=== PATIENT | male | born 1965 | race Caucasian/White ===

== ENCOUNTER 2020-05-09 22:49 | Emergency (ER) | payer BC, SELFPAY ==
[2020-05-09 22:51] VITALS: BP 145/99; PULSE 69; RESP 17; TEMP 36.7; O2SAT 98; BMI 22.9
[2020-05-09 22:55] VITALS: BMI 22.9
--- NOTE | 2020-05-09 23:01 | CT_ITS ---
PROCEDURE: CT HEAD/BRAIN WO CON CLINICAL INDICATION: bilat facial/hands/feet tingling during altercatio Facial numbness COMPARISON: No exams were available for comparison TECHNIQUE: Axial images obtained. All CT scans at the facility use one or more dose reduction, viz: automated exposure control, ma/kV adjustment per patient size (including targeted exams where dose is matched to indication, i.e. head), or iterative reconstruction technique. FINDINGS: No midline shift, mass effect, intracranial hemorrhage, hydrocephalus, or extra-axial fluid collection is evident. The calvarium has an unremarkable appearance. No mastoid effusion. No sinus air-fluid level. IMPRESSION: No acute intracranial finding Dictated by: Juan Aden MD 05/10/2020 06:37 Juan Aden MD in [place] 05/10/2020 06:37
--- NOTE | 2020-05-09 23:04 | XR_ITS ---
PROCEDURE: XR CHEST 2V CLINICAL HISTORY: anxiety issues Left sided chest COMPARISON: CR CXR CHEST(2 VIEWS-NOT PORTABLE) from 11/24/2013 FINDINGS: The cardiomediastinal silhouette and pulmonary vascularity are within normal limits. The lungs are clear without infiltrates, suspicious nodules, or pleural effusions. No acute bony abnormalities. IMPRESSION: No acute findings. Dictated by: Juan Aden MD 05/10/2020 05:41 Juan Aden MD in [facility] 05/10/2020 05:41
[2020-05-09 23:29] LABS: Basophils # 0.1 K/mm3 (0-0.2); Basophils % 0.9 % (0.1-2.0); Eosinophils # 0.9 K/mm3 (0.0-0.4); Eosinophils % 9.2 % (0.1-12.0); Hematocrit 44.8 % (42.0-52.0); Hemoglobin 15.1 g/dL (14.1-18.0); Lymphocytes # 2.2 K/mm3 (0.7-4.5); Mean Corpuscular HGB Conc 33.7 g/dL (31.8-35.4); Mean Corpuscular Hemoglobin 31.3 pg (27.0-31.2); Mean Corpuscular Volume 92.9 fl (80-94); Mean Platelet Volume 6.8 fl (7.4-10.4); Monocytes # 0.6 K/mm3 (0.1-1.0); Monocytes % 6.2 % (1.7-9.3); Neutrophils # 6.1 K/mm3 (1.8-7.8); Neutrophils % 61.7 % (37.0-80.0); Platelet Count 366 K/mm3 (142-424); Red Blood Count 4.82 M/mm3 (4.60-6.20); White Blood Count 9.9 K/mm3 (4.8-10.8)
[2020-05-09 23:36] LABS: Chloride 105 mmol/L (98-107); Potassium 3.6 mmoL/L (3.5-5.1); Sodium 139 mmol/L (136-145)
[2020-05-09 23:39] LABS: Alanine Aminotransferase 19 U/L (12-78); Albumin Level 3.9 g/dl (3.5-5.0); Albumin/Globulin Ratio 1.5 (1.1-1.8); Alkaline Phosphatase 69 U/L (38-126); Anion Gap 12.6 mEq/L (5-15); Aspartate Amino Transferase 28 U/L (17-59); Bilirubin,Total 0.6 mg/dl (0.2-1.3); Blood Urea Nitrogen 16 mg/dl (9-20); Carbon Dioxide 25 mmol/L (22.0-30.0); Creatinine Clearance Estimated 101 mL/min (50-200); Estimated Glomerular Filt Rate 100 ml/min (>60); GFR (African American) 121 ML/MIN (>60); Globulin 2.6 g/dL (1.3-3.2); Total Protein,Serum 6.5 g/dl (6.3-8.2)
[2020-05-09 23:40] LABS: Calcium 8.7 mg/dl (8.4-10.2); Glucose 111 mg/dl (74-100)
[2020-05-09 23:57] LABS: Troponin I < 0.01 ng/ml (0.00-0.034)
--- NOTE | 2020-05-10 00:19 | HMH.EDANX ---
ED Disposition Clinical Impression: Acute anxiety Disposition: Home, Self-Care Condition on Discharge: Good Instructions: Anxiety and Panic Attacks (Alternative Therapy) Additional Instructions: call in am Referrals: Rubin Brizuela MD [Primary Care Provider] - - Critical Care Critical Care Time: No Attestation: On 05/09/20, the high probability of a clinically significant, sudden or life threatening deterioration of the following system(s) required my full and direct attention, intervention and personal management. The time I documented below is in addition to time spent performing reported procedures but includes the following listed in this critical care notation. Medical Decision Making - Medical Records Medical records reviewed: Yes: I reviewed the patient's medical records. - Wan Inquiry Pt receiving controlled substance: No Vital Signs: 05/09/20 22:51 Temperature 98.0 F Temperature Source Oral Pulse Rate [Right Brachial] 69 Respiratory Rate 17 Blood Pressure [Right Arm] 145/99 H Blood Pressure Mean [Right Arm] 114 Blood Pressure Source [Right Arm] Automatic Cuff Blood Pressure Position [Right Arm] Sitting 02 Sat by Pulse Oximetry 98 Oxygen Delivery Method Room Air - Lab Data Lab results reviewed: Yes: I reviewed the patient's lab results. Lab Results 05/09/20 23:10: WBC 9.9, RBC 4.82, Hgb 15.1, Hct 44.8, MCV 92.9, MCH 31.3 H, MCHC 33.7, RDW 13.0, Plt Count 366, MPV 6.8 L, Neut % (Auto) 61.7, Lymph % (Auto) 22.0, [place] % (Auto) 6.2, Eos % (Auto) 9.2, Baso % (Auto) 0.9, Neut # (Auto) 6.1, Lymph # (Auto) 2.2, [place] # (Auto) 0.6, Eos # (Auto) 0.9 H, Baso # (Auto) 0.1 05/09/20 23:10: Sodium 139, Potassium 3.6, Chloride 105, Carbon Dioxide 25, Anion Gap 12.6, BUN 16, Creatinine 0.80, Estimated Creat Clear 101, Estimated GFR 100, Est GFR ( Amer) 121, Glucose 111 H, Calcium 8.7, Total Bilirubin 0.6, AST 28, ALT 19, Alkaline Phosphatase 69, Troponin I < 0.01, Total Protein 6.5, Albumin 3.9, Globulin 2.6, Albumin/Globulin Ratio 1.5 Result diagrams: 05/09/20 23:10 05/09/20 23:10 Orders (Tests/Meds): ED MEDICATIONS Discontinued Medications Generic Name Dose Route Start Last Admin Trade Name Bessie PRN Reason Stop Dose Admin Lorazepam 0.5 mg 05/09/20 22:56 05/09/20 22:57 Ativan 0.5mg Tablet PO 05/09/20 22:57 0.5 mg ONCE ONE Administration ORDERS Category Date Time Status CT head/brain wo con Stat Cat Scan 05/09/20 23:01 Taken Chest XR 2 view (NOT portable) [XR chest 2V] Stat Exams 05/09/20 23:04 Taken Troponin I Q3H Lab 05/10/20 02:15 Ordered Troponin I Q3H Lab 05/10/20 05:15 Ordered - CT Data CT Scan: Head Time Received: 00:[address] Reviewed: Yes: I have viewed the radiologist's interpretation Preliminary Findings: Normal/NAD Anxiety HPI - General Chief Complaint: Anxiety Stated Complaint: anxiety attack Time Seen by Provider: 05/09/20 23:00 Mode of Arrival: EMS Source of Information: Patient, Spouse, EMS, Medical Record Limitations: No Limitations Description of Symptoms (Recalled from ER Triage Doc. by RN): bilat hands feet and facial numbness presentation; history of anxiety; pt states his turned 44 last week and since then they have been having marital discord. further states he is not a patient man and has some anger issues, and when she told him she wanted some space he lost it . He is upset because she has been staying with a friend, as well and not home with him. tonight she came to get some clothes and they talked for a few hours and he got upset and started feeling funny as not4ed before. called ems for response - History of Present Illness HPI narrative: pt with parasthesia as he was upset about marital issues - no focal changes MD complaint: anxiety Onset (ago): hour(s) Symptoms: extremity numbness/tingling, perioral numbness/tingling Severity: moderate Place: home History of similar episodes: No Provoking
[2020-05-10 00:42] VITALS: BP 112/55; PULSE 70; RESP 17; TEMP 36.7; O2SAT 98
== END 2020-05-10 00:45 | disposition home or self-care (01) ==
PROVIDERS: Emergency Provider Emergency Medicine; PCP Family Medicine
DX: F41.0 Panic disorder [episodic paroxysmal anxiety] (principal)
CPT/HCPCS: 70450; 71046; 80053; 84484; 85025; 93005; 96374; 99282

== ENCOUNTER 2022-07-31 15:02 | Emergency (ER) | payer SELFPAY ==
[2022-07-31 17:03] VITALS: BP 141/91; PULSE 80; RESP 19; TEMP 36.7; O2SAT 98; BMI 23.3
--- NOTE | 2022-07-31 17:13 | EXP.UTC ---
Discharge Plan Disposition Patient Disposition: Home, Self-Care Condition: Good Prescriptions Prescriptions: New azithromycin [Zithromax Z-Smith] 250 mg tablet See Rx Instructions .ROUTE .COMPLEX 5 Days Qty: 6 0RF Rx Instructions: For 250 mg dose pack: take 500 mg today (day 1), then 250 mg for 4 days (days 2-5) methylprednisolone [Medrol (Smith)] 4 mg tablets,dose pack See Rx Instructions .Route .COMPLEX 6 Days Qty: 21 0RF Rx Instructions: taper pack; No Action omeprazole 10 mg capsule,delayed release(DR/EC) 10 mg PO DAILY Referrals Follow up/Referrals: Rubin Brizuela MD [Primary Care Provider] - See instructions Clinical Impressions Clinical Impression: Sinusitis Qualifiers: Sinusitis location: unspecified location Chronicity: unspecified Qualified Code(s): J32.9 - Chronic sinusitis, unspecified Instructions Patient Instructions: Sinusitis, DI for Sinusitis Discharge ED Provider: Xena Cee [facility] [place] Stated complaint: Trouble hearing, drainage, cough, diarrhea Time Seen by Provider: 07/31/22 17:13 History of Present Illness Provider Complaint: Patient states that he has been having sinus pain and pressure, feeling like his ears all stopped up and full of fluid, had diarrhea yesterday but not today and at times he is coughing up mucous that is draining in his throat States today his head feels like a balloon Related Data Home Medications Medication Instructions Recorded Confirmed omeprazole 10 mg capsule,delayed 10 mg PO DAILY 07/16/18 07/16/18 release Previous Rx's Medication Instructions Recorded azithromycin 250 mg tablet See Rx Instructions PO .COMPLEX 5 07/31/22 (Zithromax Z-Smith) days #6 tabs methylprednisolone 4 mg tablets in See Rx Instructions .Route 07/31/22 a dose pack (Medrol (Smith)) .COMPLEX 6 days #21 tabs Allergies Allergy/AdvReac Type Severity Reaction Status Date / Time No Known Allergies Allergy Unverified 07/16/18 10:42 [facility] Social History Smoking Status: Never smoker alcohol intake: never current occupational status: employed Travel in the last 8 weeks: None ROS Obtained: Yes All systems reviewed & no additional complaints except as documented and Yes Systems reviewed as appropriate & no additional complaints except as documented Constitutional Constitutional: Reports system reviewed and no additional complaints, except as documented, Reports as per HPI, Denies fever(s) and Reports headache(s) ENT Ears, Nose, Mouth, and Throat: Reports system reviewed and no additional complaints, except as documented, Reports as per HPI, Reports otalgia, Reports headache(s), Reports sinus pain, Reports sinus pressure and Reports sore throat Respiratory Respiratory: Reports system reviewed and no additional complaints, except as documented, Reports as per HPI, Reports chest congestion and Reports cough Gastrointestinal Gastrointestingal: Reports system reviewed and no additional complaints, except as documented, as per HPI and diarrhea; Denies abdominal pain, cramping, nausea or vomiting Neurologic Neurologic: Reports headache(s) Physical Exam General General appearance: alert and in no apparent distress Expanded ENT Exam TM/Canal exam: Bilateral TM: bulging Nose exam: Present sinus tenderness Throat exam: Present other (pharyngeal erythema noted with PND) Respiratory Respiratory exam: Present normal lung sounds bilaterally; Absent respiratory distress or wheezes Cardiovascular Cardiovascular exam: Present regular rate, normal rhythm and normal heart sounds Neurological Exam Neurological exam: Present alert, oriented X3 and normal gait Medical Decision Making Wan Inquiry Pt receiving controlled substance: No Wan was queried for this patient: No Medical Decision Narrative: Patient state that he has take zpack and medrol pack in the past without complications or reactions
[2022-07-31 17:37] VITALS: BP 146/87; PULSE 83; RESP 17; TEMP 36.7; O2SAT 98
== END 2022-07-31 17:40 | disposition home or self-care (01) ==
PROVIDERS: Emergency Provider Nurse Practitioner; PCP Family Medicine
DX: J32.9 Chronic sinusitis, unspecified (principal)
CPT/HCPCS: 99212; G0463

== ENCOUNTER 2023-01-15 20:58 | Observation (INO) | payer BC, SELFPAY ==
[2023-01-15 20:59] VITALS: BP 136/96; PULSE 81; RESP 16; TEMP 36.6; O2SAT 97; BMI 25.2
--- NOTE | 2023-01-15 21:00 | ECG_ITS ---
APPROVED REPORT Exam: Resting ECG HR:59 bpm ECG Measurements Heart Rate 59 AXES MA 135 P 64 QRSd 108 QRS -20 QT 403 T 43 QTc 402 Conclusion SINUS BRADYCARDIA INCOMPLETE RIGHT BUNDLE BRANCH BLOCK [90+ ms QRS DURATION, TERMINAL R IN V1/V2, 40+ ms S IN I/aVL/V4/V5/V6] MINIMAL VOLTAGE CRITERIA FOR LVH, CONSIDER NORMAL VARIANT [MEETS CRITERIA IN ONE OF: R(aVL), S(V1), R(V5), R(V5/V6)+S(V1)] BORDERLINE ECG UNCONFIRMED REPORT Electronically signed by : Rubin Pearson MD 01/16/2023 19:37:28
--- NOTE | 2023-01-15 21:02 | XR_ITS ---
PROCEDURE INFORMATION: Exam: XR Chest Exam date and time: 01/15/2023 9:05 PM Age: 57 years old Clinical indication: Radiating; Patient HX: C/O chest pain that goes down left arm. Started a couple days ago, went away and now is back; Additional info: Cp TECHNIQUE: Imaging protocol: Radiologic exam of the chest. Views: 2 views. COMPARISON: CR XR CHEST 2V 05/09/2020 11:26 PM FINDINGS: Lungs: Unremarkable. No consolidation. Pleural spaces: Unremarkable. No pleural effusion. No pneumothorax. Heart/Mediastinum: Unremarkable. No cardiomegaly. Bones/joints: Unremarkable. IMPRESSION: No acute findings.
[2023-01-15 21:26] LABS: Basophils # 0.1 K/mm3 (0-0.2); Basophils % 0.7 % (0.1-2.0); Eosinophils # 0.3 K/mm3 (0.0-0.4); Eosinophils % 3.2 % (0.1-12.0); Hematocrit 44.4 % (42.0-52.0); Hemoglobin 14.6 g/dL (14.1-18.0); Lymphocytes # 2.6 K/mm3 (0.7-4.5); Lymphocytes % 25.5 % (10-50); Mean Corpuscular Hemoglobin 30.4 pg (27.0-31.2); Mean Corpuscular Volume 92.1 fl (80-94); Mean Platelet Volume 7.5 fl (7.4-10.4); Monocytes # 0.8 K/mm3 (0.1-1.0); Monocytes % 7.8 % (1.7-9.3); Neutrophils # 6.4 K/mm3 (1.8-7.8); Neutrophils % 62.7 % (37.0-80.0); Platelet Count 408 K/mm3 (142-424); Red Blood Count 4.82 M/mm3 (4.60-6.20); White Blood Count 10.2 K/mm3 (4.8-10.8)
[2023-01-15 21:31] VITALS: BP 113/76; RESP 20
[2023-01-15 21:38] LABS: Alanine Aminotransferase 25 U/L (12-78); Albumin Level 4.5 g/dl (3.5-5.0); Albumin/Globulin Ratio 1.7 (1.1-1.8); Alkaline Phosphatase 72 U/L (38-126); Anion Gap 10.5 mEq/L (5-15); Aspartate Amino Transferase 35 U/L (17-59); Bilirubin,Total 0.8 mg/dl (0.2-1.3); Blood Urea Nitrogen 18 mg/dl (9-20); Calcium 8.5 mg/dl (8.4-10.2); Carbon Dioxide 28 mmol/L (22.0-30.0); Chloride 104 mmol/L (98-107); Creatinine Clearance Estimated 86 mL/min (50-200); Estimated Glomerular Filt Rate 77 ml/min (>60); GFR (African American) 93 ML/MIN (>60); Globulin 2.6 g/dL (1.3-3.2); Glucose 107 mg/dl (74-100); Potassium 3.5 mmoL/L (3.5-5.1); Sodium 139 mmol/L (136-145); Total Protein,Serum 7.1 g/dl (6.3-8.2)
[2023-01-15 21:43] LABS: C-Reactive Protein 2.3 mg/L (0-4)
[2023-01-15 21:57] LABS: Procalcitonin 0.037 ng/mL (0.0-2.0)
[2023-01-15 21:58] LABS: Troponin I < 0.01 ng/ml (0.00-0.034)
[2023-01-15 22:00] VITALS: BP 107/73; PULSE 69; RESP 21; O2SAT 97
[2023-01-15 22:08] LABS: Erythrocyte Sedimentation Rate 5 mm/hr (0-20)
[2023-01-15 22:30] VITALS: BP 105/70; PULSE 60; RESP 16; O2SAT 98
[2023-01-15 23:00] VITALS: BP 107/73; PULSE 80; RESP 15; O2SAT 98
--- NOTE | 2023-01-15 23:08 | HMH.EDCP ---
Discharge Plan Disposition Patient Disposition: Admitted as Observation Chief Complaint: Chest Pain Prescriptions Prescriptions: No Action omeprazole 10 mg capsule,delayed release(DR/EC) 10 mg PO DAILY Referrals Follow up/Referrals: Rubin Brizuela MD [Primary Care Provider] - See instructions Discharge ED Provider: Jaret (ED),Devin Chakraborty Chest Pain HPI General Chief Complaint: Chest Pain Stated Complaint: cp Time Seen by Provider: 01/15/23 23:08 Mode of Arrival: Ambulatory Source of Information: Patient, Relative and Medical Record Limitations: No Limitations Description of Symptoms (Recalled from ER Triage Doc. by RN): pt c/o lt side chest tightness radiating up neck and down lt arm that started about 4pm this afternoon. pt states had an episode a couple days ago but todays is worse History of Present Illness HPI narrative: episodes of chest pain with rad to lt upper ext and neck over the last few days - did get relief with ntg complaint: chest pain indicative of cardiac Onset (ago): hour(s) Duration: intermittent Activity at onset: during rest Pain location: left chest Severity: moderate Quality: tightness Pain radiation: LUE and neck Relieving factors: nitroglycerin Risk Factors for CAD: Hypertension and Family Hx of CAD Treatments prior to or on arrival for Cardiac Chest Pain: none BOLIVAR Score for Non-Stemi Age of Patient: 50-59 years old Heart Rate: 50-69 bpm Systolic Blood Pressure: 120-139 mmhg Serum Creatinine: 0.80-1.19 mg/dl CHF [place] Class: I-No CHF Other Risk Factors: None Non-Stemi Risk Score: 85 Risk Stratification: 1-108 = Low Risk Related Data Home Medications Medication Instructions Recorded Confirmed omeprazole 10 mg capsule,delayed 10 mg PO DAILY gerd 07/16/18 01/15/23 release Allergies Allergy/AdvReac Type Severity Reaction Status Date / Time No Known Allergies Allergy Unverified 07/16/18 10:42 [facility] Disclaimer: The information contained in this section may have been updated after the patient was seen, as this information can be updated by other users. Social History (Updated 07/31/22 @ 17:21 by Xena Cee APRN) Smoking Status: Never smoker alcohol intake: never current occupational status: employed Travel in the last 8 weeks: None ROS Obtained: Yes All systems reviewed & no additional complaints except as documented Physical Exam General General appearance: alert Head Head exam: normocephalic Eye Eye exam: Present PERRL and EOMI ENT ENT exam: Present mucous membranes moist Neck Neck exam: Present trachea midline Respiratory Respiratory exam: Present normal lung sounds bilaterally; Absent respiratory distress Cardiovascular Cardiovascular exam: Present regular rate and systolic murmur Abdominal Exam Abdominal exam: Present soft Extremities Exam Extremities exam: Present full ROM Neurological Exam Neurological exam: Present alert, oriented X3 and CN II-XII intact; Absent motor sensory deficit Psychiatric Psychiatric exam: Present normal affect Skin Skin exam: Absent rash Medical Decision Making Medical Records Medical records reviewed: Yes I reviewed the patient's medical records. Wan Inquiry Pt receiving controlled substance: No Vital Signs: 01/15/23 20:59 01/15/23 21:31 01/15/23 22:00 Temperature 97.9 F Temperature Source Oral Pulse Rate 69 Pulse Rate [Right] 81 Respiratory Rate 16 20 21 Blood Pressure 113/76 107/73 L Blood Pressure [Right Arm] 136/96 H Blood Pressure Mean [Right Arm] 109 02 Sat by Pulse Oximetry 97 97 Oxygen Delivery Method Room Air Lab Data Lab results reviewed: Yes I reviewed the patient's lab results. Lab Results 01/15/23 21:06: WBC 10.2, RBC 4.82, Hgb 14.6, Hct 44.4, MCV 92.1, MCH 30.4, MCHC 33.0, RDW 13.0, Plt Count 408, MPV 7.5, Neut % (Auto) 62.7, Lymph % (Auto) 25.5, [place] % (Auto) 7.8, Eos % (Auto) 3.2, Baso % (Auto) 0.7, Neut # (Auto) 6.4, Lymph # (Auto
--- NOTE | 2023-01-15 23:16 | PC.NURSE ---
SPOKE WITH RAFAEL RODRIGUEZ.
[2023-01-15 23:22] LABS: Coronavirus 19, PCR Not Detected (NotDetected); Influenza A, PCR Not Detected (NotDetected); Influenza B, PCR Not Detected (NotDetected)
--- NOTE | 2023-01-15 23:26 | EXP.HP ---
History of Present Illness *Admission Date: 01/15/23 *Reason for visit:: Chest pain *History of present illness: Mr. Coats is a 57-year-old male with a past medical history of GERD. He presents to [facility] due to an acute episode of chest pain that occurred approximately a few hours prior to presentation. He reports similar episodes the week prior to presentation, but today's occurrence was worse than the previous episodes. He reports that the pain is located in the mid-sternal chest region with radiation to the neck and arm on the left side and is associated with nausea, shortness of air and dizziness. In the ER, the patient underwent an EKG that showed Sinus Bradycardia with no ST segment elevation or depression. Troponin was <0.01. Cxray showed no acute cardiopulmonary findings. CBC and CMP were unremarkable. [facility] Disclaimer: The information contained in this section may have been updated after the patient was seen, as this information can be updated by other users. Medical History (Updated 01/15/23 @ 23:48 by Brian Hardy RN) GERD (gastroesophageal reflux disease) Surgical History (Updated 01/16/23 @ 00:01 by Nevaeh Galan RN) History of cholecystectomy Social History (Updated 01/16/23 @ 00:02 by Nevaeh Galan RN) Smoking Status: Never smoker alcohol intake: current current occupational status: employed Travel in the last 8 weeks: None Review of Systems Review of Systems Review of systems:: pertinent systems reviewed and negative unless documented below Constitutional Constitutional: Reports system reviewed and no additional complaints, except as documented Eyes Eyes: Reports system reviewed and no additional complaints, except as documented ENT Ears, Nose, Mouth, and Throat: Reports system reviewed and no additional complaints, except as documented *Cardiovascular Cardiovascular: Reports chest pain, Reports dyspnea, Reports dyspnea on exertion, Reports lightheadedness and Reports radiating jaw, neck or arm pain *Respiratory Respiratory: Reports dyspnea and Reports dyspnea on exertion *Gastrointestinal Gastrointestinal: Reports nausea *Genitourinary Genitourinary: Reports system reviewed and no additional complaints, except as documented *Musculoskeletal Musculoskeletal: Reports system reviewed and no additional complaints, except as documented Integumentary/Breasts Skin/Breast: Reports system reviewed and no additional complaints, except as documented *Neurologic Neurologic: Reports system reviewed and no additional complaints, except as documented Psychiatric Psychiatric: Reports system reviewed and no additional complaints, except as documented Endocrine Endocrine: Reports system reviewed and no additional complaints, except as documented Hematologic/Lymphatic Hematologic/Lymphatic: Reports system reviewed and no additional complaints, except as documented Allergic/Immunologic Allergic/Immunologic: Reports system reviewed and no additional complaints, except as documented Meds Home Medications and Allergies Home Medications Medication Instructions Recorded Confirmed Type pantoprazole 40 mg tablet,delayed 40 mg PO DAILY 30 days #30 tabs 01/16/23 Rx release New Prescriptions to Start Prescriptions: pantoprazole eBny Abreu Allergies Allergy/AdvReac Type Severity Reaction Status Date / Time No Known Allergies Allergy Unverified 07/16/18 10:42 Exam Data for Last 24 hours Vital signs and Labs for Last 24 Hours: Temp Pulse Resp BP Pulse Ox 97.9 F 69 21 107/73 L 97 01/15/23 20:59 01/15/23 22:00 01/15/23 22:00 01/15/23 22:00 01/15/23 22:00 Laboratory Results - last 24 hr 01/15/23 21:06: WBC 10.2, RBC 4.82, Hgb 14.6, Hct 44.4, MCV 92.1, MCH 30.4, MCHC 33.0, RDW 13.0, Plt Count 408, MPV 7.5, Neut % (Auto) 62.7, Lymph % (Auto) 25.5, [place] % (Auto) 7.8, Eos % (Auto) 3.2, Baso % (Auto) 0.7, Neut # (
[2023-01-15 23:35] LABS: Chol/HDL Ratio 4.7 (1-3.5); Cholesterol 178 mg/dl (140-200); HDL Cholesterol 38 mg/dl (40-60); Triglycerides 285 mg/dl (30-150); VLDL Cholesterol 57 mg/dL (0-40)
[2023-01-15 23:41] VITALS: BP 107/73; PULSE 80; RESP 15; TEMP 36.6; O2SAT 98
[2023-01-15 23:45] LABS: Direct LDL Cholesterol 83.93 mg/dL (100-129)
--- NOTE | 2023-01-15 23:51 | PC.NURSE ---
Pt. arrived by wheelchair at this time.
[2023-01-16] VITALS (7 sets, daily range): BP systolic 99–129; BP diastolic 48–79; PULSE 46–73; RESP 17–20; TEMP 36.6–36.8; O2SAT 93–100; BMI 25.4
[2023-01-16 00:37] LABS: Troponin I < 0.01 ng/ml (0.00-0.034)
[2023-01-16 03:54] LABS: Troponin I < 0.01 ng/ml (0.00-0.034)
--- NOTE | 2023-01-16 06:28 | PC.NURSE ---
Pt has been rating his mid sternal chest pain a 4/10 t/o night. Pt has refused PRN medication. NSR to sinus romero on telemetry. is at bedside. Call light within reach.
--- NOTE | 2023-01-16 07:00 | HMH.PHAINT1 ---
Pharmacy Intervention Comments: MEDICATION RECONCILIATION COMPLETED ON PATIENT USING EXTERNAL FILL HISTORY FROM PHARMACY. -RIVER RODNEY, BRYD
--- NOTE | 2023-01-16 07:58 | EXP.CARD.CON ---
History of Present Illness History of Present Illness Consult date: 01/16/23 Requesting physician: Beny Abreu Consult reason: chest pain Chief complaint: chest pain, neck and left arm pain Additional Medical History:: 1. GERD with ulcers in past A. Chronic PPI therapy 2. chest pain, 01/15/2023 a. Troponin normal X 3 B. Echo, preliminary, normal, 12/2022 History of present illness: 57-year-old white male presented to the emergency department for recurrent episodes of midsternal to left-sided chest pain with radiation into the neck and left arm over the last 1 to 2 weeks. Symptoms may occur at rest or with exercise with no seeming aggravating or alleviating factors. There is some associated nausea shortness of breath and dizziness. Patient did receive relief with sublingual nitroglycerin in the ER last evening. He does have a long history of GERD with prior gastric ulcers with his last EGD several years ago. He states that if he misses his PPI therapy for more than 3 days his food gets stuck and he has to throw his food up. He denies ever having esophageal dilatation. Non-smoker Nondiabetic No family history of early coronary disease No history of treatment for hypertension or hyperlipidemia Preliminary echocardiogram today shows preserved ejection fraction with no significant valve disease. EKG this admission is sinus rhythm with incomplete right bundle but no acute ST segment elevation. Cardiology consulted for evaluation and recommendations [facility] Disclaimer: The information contained in this section may have been updated after the patient was seen, as this information can be updated by other users. Medical History (Updated 01/15/23 @ 23:48 by Brian Hardy RN) GERD (gastroesophageal reflux disease) Surgical History (Updated 01/16/23 @ 00:01 by Nevaeh Galan RN) History of cholecystectomy Social History (Updated 01/16/23 @ 00:02 by Nevaeh Galan RN) Smoking Status: Never smoker alcohol intake: current current occupational status: employed Travel in the last 8 weeks: None Review of Systems Review of Systems Review of systems:: pertinent systems reviewed and negative unless documented below ENT Ears, Nose, Mouth, and Throat: Reports dysphagia *Cardiovascular Cardiovascular: Reports chest pain, Reports chest pain at rest, Reports chest pain with activity and Reports radiating jaw, neck or arm pain *Gastrointestinal Gastrointestinal: Reports dyspepsia and Reports dysphagia *Neurologic Neurologic: Reports system reviewed and no additional complaints, except as documented Exam Data for Last 24 hours Vital signs and Labs for Last 24 Hours: Temp Pulse Resp BP Pulse Ox 97.8 F 53 L 18 99/55 L 98 01/16/23 07:13 01/16/23 07:13 01/16/23 07:13 01/16/23 07:13 01/16/23 07:13 Laboratory Results - last 24 hr 01/15/23 21:06: WBC 10.2, RBC 4.82, Hgb 14.6, Hct 44.4, MCV 92.1, MCH 30.4, MCHC 33.0, RDW 13.0, Plt Count 408, MPV 7.5, Neut % (Auto) 62.7, Lymph % (Auto) 25.5, [place] % (Auto) 7.8, Eos % (Auto) 3.2, Baso % (Auto) 0.7, Neut # (Auto) 6.4, Lymph # (Auto) 2.6, [place] # (Auto) 0.8, Eos # (Auto) 0.3, Baso # (Auto) 0.1, ESR 5 01/15/23 21:06: Sodium 139, Potassium 3.5, Chloride 104, Carbon Dioxide 28, Anion Gap 10.5, BUN 18, Creatinine 1.00, Estimated Creat Clear 86, Estimated GFR 77, Est GFR ( Amer) 93, Glucose 107 H, Calcium 8.5, Total Bilirubin 0.8, AST 35, ALT 25, Alkaline Phosphatase 72, Troponin I < 0.01, C-Reactive Protein 2.3, Total Protein 7.1, Albumin 4.5, Globulin 2.6, Albumin/Globulin Ratio 1.7, Procalcitonin 0.037 01/15/23 21:06: Triglycerides 285 H, Cholesterol 178, LDL Cholesterol Direct 83.93 L, VLDL Cholesterol 57 H, HDL Cholesterol 38 L, Cholesterol/HDL Ratio 4.7 H 01/15/23 23:17: SARS-CoV-2 (PCR) Not detected, Influenza A Untype (PCR) Not detected, Influenza Type B (PCR) Not detected 01/16/23 00:05: Troponin I < 0.01 01/16/23 03:25: Troponin I < 0.01 I & O f
[2023-01-16 08:07] LABS: Chol/HDL Ratio 4.7 (1-3.5); Cholesterol 146 mg/dl (140-200); HDL Cholesterol 31 mg/dl (40-60); Triglycerides 168 mg/dl (30-150); VLDL Cholesterol 34 mg/dL (0-40)
[2023-01-16 08:18] LABS: Direct LDL Cholesterol 73.44 mg/dL (100-129)
--- NOTE | 2023-01-16 08:31 | EXP.DC.SUM ---
General Admission date:: 01/15/23 Discharge date: 01/16/23 HPI HPI HPI: Mr. Coats is a 57-year-old male with a past medical history of GERD. He presents to [facility] due to an acute episode of chest pain that occurred approximately a few hours prior to presentation. He reports similar episodes the week prior to presentation, but today's occurrence was worse than the previous episodes. He reports that the pain is located in the mid-sternal chest region with radiation to the neck and arm on the left side and is associated with nausea, shortness of air and dizziness. In the ER, the patient underwent an EKG that showed Sinus Bradycardia with no ST segment elevation or depression. Troponin was <0.01. Cxray showed no acute cardiopulmonary findings. CBC and CMP were unremarkable. Hospital Course Hospital Course Hospital Course: 57-year-old male with past medical history of GERD presents with acute episode of chest pain - Chest Pain Reports pain in mid sternal chest region with radiation to neck and arm. Serial troponins obtained, remained less than 0.01. Still having some discomfort but mainly epigastric. Symptoms were associated with nausea, and some mild shortness of breath. Improved by morning. Cardiology was consulted. Proceeded with stress test, tolerated 12 minutes on a treadmill with no changes in EKG. Echo obtained, formal read still pending at discharge, preliminary read essentially normal. Pain deemed to be secondary to noncardiac cause. Likely secondary to GERD and history of esophagitis. Problems addressed below. No further intervention from cardiac standpoint at this time. - GERD Longstanding history of GERD. Patient takes omeprazole at home daily. Had a scope several years ago which showed healing of previously identified esophageal ulcers. Has not seen GI in a few years. Will refer to Dr. Contreras in [place] for EGD and further management. Increase PPI coverage to pantoprazole 40 mg daily. Hemoglobin stable. Low concern for any GI bleed or ulceration at this time. Of note, trialed GI cocktail on day of discharge, improved patient's discomfort. Patient incidentally mentioned he was having black stools once a week, may or may not be associated with Pepto-Bismol. As mentioned previously, hemoglobin is in a normal range, no anemia and no micro or macrocytosis. Medically stable for discharge home. Further management as an outpatient for noncardiac etiologies of chest pain. Exam Data for Last 24 hours Vital signs and Labs for Last 24 Hours: Temp Pulse Resp BP Pulse Ox 97.8 F 53 L 18 99/55 L 98 01/16/23 07:13 01/16/23 07:13 01/16/23 07:13 01/16/23 07:13 01/16/23 07:13 Laboratory Results - last 24 hr 01/15/23 21:06: WBC 10.2, RBC 4.82, Hgb 14.6, Hct 44.4, MCV 92.1, MCH 30.4, MCHC 33.0, RDW 13.0, Plt Count 408, MPV 7.5, Neut % (Auto) 62.7, Lymph % (Auto) 25.5, Swain % (Auto) 7.8, Eos % (Auto) 3.2, Baso % (Auto) 0.7, Neut # (Auto) 6.4, Lymph # (Auto) 2.6, Swain # (Auto) 0.8, Eos # (Auto) 0.3, Baso # (Auto) 0.1, ESR 5 01/15/23 21:06: Sodium 139, Potassium 3.5, Chloride 104, Carbon Dioxide 28, Anion Gap 10.5, BUN 18, Creatinine 1.00, Estimated Creat Clear 86, Estimated GFR 77, Est GFR ( Amer) 93, Glucose 107 H, Calcium 8.5, Total Bilirubin 0.8, AST 35, ALT 25, Alkaline Phosphatase 72, Troponin I < 0.01, C-Reactive Protein 2.3, Total Protein 7.1, Albumin 4.5, Globulin 2.6, Albumin/Globulin Ratio 1.7, Procalcitonin 0.037 01/15/23 21:06: Triglycerides 285 H, Cholesterol 178, LDL Cholesterol Direct 83.93 L, VLDL Cholesterol 57 H, HDL Cholesterol 38 L, Cholesterol/HDL Ratio 4.7 H 01/15/23 23:17: SARS-CoV-2 (PCR) Not detected, Influenza A Untype (PCR) Not detected, Influenza Type B (PCR) Not detected 01/16/23 00:05: Troponin I < 0.01 01/16/23 03:25: Troponin I < 0.01 01/16/23 05:20: Triglycerides 168 H, Cholesterol 146, LDL Cholesterol Direct 73.44 L, VLDL Cholesterol 34, HDL Cholesterol 31 L,
--- NOTE | 2023-01-16 10:44 | HMH.PHAINT1 ---
Pharmacy Intervention Comments: Counseled patient on new medication to START (pantoprazole) and medication to STOP at discharge (omeprazole). Patient expressed understanding of medication's indication, dose, route, frequency, and potential side effects.
--- NOTE | 2023-01-17 13:52 | CARE MANAGER ---
Spoke with patient for post-discharge phone interview, no issues.
== END 2023-01-16 12:15 | disposition home or self-care (01) ==
LOC: ER 22:41 → 2ND 23:22
PROVIDERS: Nurse Practitioner Family; Admitting Provider Internal Medicine Adolescent Medicine; Emergency Provider Emergency Medicine; PCP Family Medicine; Visit Provider Internal Medicine Adolescent Medicine
DX: R07.9 Chest pain, unspecified (principal); I25.10 Atherosclerotic heart disease of native coronary artery without angina pectoris; I10 Essential (primary) hypertension; Z82.49 Family history of ischemic heart disease and other diseases of the circulatory system; K21.9 Gastro-esophageal reflux disease without esophagitis
CPT/HCPCS: 36415; 71046; 80053; 80061; 84145; 84484; 85025; 85651; 86140; 93005; 93017; 93306; 99285; C9803; G0378; U0003; U0005